=== PATIENT | female | born 1960 | race Caucasian/White ===

== ENCOUNTER 2022-03-21 18:25 | Inpatient (IN) | payer MEDICARE, SELFPAY ==
[2022-03-21] MEDS ORDERED: Folic Acid 1 MG TAB ONE (19:05)
[2022-03-21] MEDS ORDERED: LORazepam 2 MG/ML SYR.(CARPUJECT) ONE (19:06)
[2022-03-21] MEDS ORDERED: Thiamine HCl 200 MG/2 ML VIAL IM SCH (19:15)
[2022-03-21 19:28] LABS: INR-International Normal Ratio 1.6; Prothrombin Time 19.9 sec (12.0-14.7)
[2022-03-21 19:30] LABS: Hemoglobin 7.1 g/dL (12.0-16.0); Mean Corpuscular HGB CONC 32.3 g/dL (32.0-36.0); Mean Corpuscular Hemoglobin 40.3 pg (27.0-31.0); Platelet Count 127 10x3/uL (130-400); RBC Distribution Width 20.3 % (11.5-14.5); Red Blood Cell (RBC) Count 1.75 mill/uL (4.20-5.40); White Blood Cell (WBC) Count 3.2 10x3/uL (4.8-10.8)
[2022-03-21 19:34] LABS: Acetaminophen Less than 10.0 mcg/mL (10.0-30.0); Alcohol Less than 10 mg/dL (Less than 10); Magnesium 1.5 mg/dL (1.6-2.6); Salicylate Less than 8.0 mg/dL (15.0-30.0)
[2022-03-21 19:35] LABS: ALT (SGPT) 25 U/L (8-55); AST (SGOT) 62 U/L (5-34); Albumin 2.1 g/dL (3.4-4.8); Alkaline Phosphatase 258 U/L (40-110); Anion Gap 16 mmol/L (10-20); BUN (Urea Nitrogen) 14 mg/dL (9.8-20.1); Bilirubin, Total 10.1 mg/dL (0.2-1.2); Calc. Creatinine Clearance 0 mL/min (70-130); Calcium 7.9 mg/dL (7.8-10.44); Carbon Dioxide 26 mmol/L (23-31); Chloride 100 mmol/L (98-107); Estimated GFR 47; Globulin 3.2 g/dL (2.4-3.5); Glucose 96 mg/dL (80-115); Lipase 4 U/L (8-78); Potassium 3.2 mmol/L (3.5-5.1); Protein, Total 5.3 g/dL (5.8-8.1); Sodium 139 mmol/L (136-145)
[2022-03-21 19:36] LABS: #Eosinphils 0.1 thou/uL (0.0-0.7); #Lymphocytes 0.5 thou/uL (1.20-3.40); #Monocytes 0.2 thou/uL (0.11-0.59); #Neutrophils 2.3 thou/uL (1.40-6.50); %Basophils 0.9 % (0.0-1.0); %Eosinophils 3.2 % (0.0-10.0); %Lymphocytes 16.5 % (21.0-51.0); %Monocytes 6.9 % (0.0-10.0); %Neutrophils 72.5 % (42.0-75.0)
[2022-03-21] MEDS ORDERED: Potassium Chloride 20 MEQ TAB ONE (20:53)
[2022-03-21] MEDS ORDERED: Magnesium 2 GM/50 ML BAG (IN WATER) ONE (20:53)
[2022-03-21 22:15] LABS: Amphetamine Not Detected (NotDetected); Bacteria/HPF 3+ HPF (None Seen); Barbiturates Screen Not Detected (NotDetected); Benzodiazepine Screen Not Detected (NotDetected); Bilirubin 1+ (Negative); Blood, Urine Negative (Negative); Clarity Turbid (Clear); Cocaine Metabolite Screen Not Detected (NotDetected); Glucose, Urine (Dipstick) Normal (Negative); Ketone, Urine Negative (Negative); Leukocyte 75 Leu/uL (Negative); Methadone Not Detected (NotDetected); Methamphetamine Not Detected (NotDetected); Nitrite Negative (Negative); Opiate Screen Not Detected (NotDetected); Oxycodone Screen Not Detected (NotDetected); Phencyclidine (PCP) Not Detected (NotDetected); Protein, Urine (Dipstick) Negative (Neg-Trace); RBC/HPF 0-3 HPF (0-3); Specific Gravity, Urine 1.011 (1.002-1.036); Squamous Epithelial 0-3 HPF (0-3); THC/Cannabinoid Screen Not Detected (NotDetected); Tricyclic Screen Not Detected (NotDetected)
[2022-03-21] MEDS ORDERED: Lorazepam 1 MG TAB PO PRN (22:23)
[2022-03-21] MEDS ORDERED: Lorazepam 2 MG/ML VIAL IM PRN (22:23)
[2022-03-21] MEDS ORDERED: Ondansetron ODT 4 MG TAB PO PRN ×2 (22:23→22:30)
[2022-03-21] MEDS ORDERED: Thiamine HCl 200 MG/2 ML VIAL SLOW IVP SCH (22:30)
[2022-03-21] MEDS ORDERED: Electrolyte Replacement Protocol 1 EACH FS SCH (22:30)
[2022-03-21] MEDS ORDERED: Ondansetron PF 4 MG/2 ML Vial IVP PRN (22:30)
[2022-03-21 23:39] LABS: #Eosinphils 0.1 thou/uL (0.0-0.7); #Lymphocytes 0.7 thou/uL (1.20-3.40); #Monocytes 0.3 thou/uL (0.11-0.59); #Neutrophils 2.1 thou/uL (1.40-6.50); %Eosinophils 2.2 % (0.0-10.0); %Lymphocytes 21.2 % (21.0-51.0); %Monocytes 10.5 % (0.0-10.0); %Neutrophils 65.1 % (42.0-75.0); Hemoglobin 6.4 g/dL (12.0-16.0); Mean Corpuscular HGB CONC 31.5 g/dL (32.0-36.0); Mean Corpuscular Hemoglobin 40.7 pg (27.0-31.0); Mean Platelet Volume 10.5 fL (7.4-10.4); Platelet Count 98 10x3/uL (130-400); RBC Distribution Width 20.5 % (11.5-14.5); Red Blood Cell (RBC) Count 1.58 mill/uL (4.20-5.40); White Blood Cell (WBC) Count 3.3 10x3/uL (4.8-10.8)
[2022-03-22] MEDS ORDERED: Lactulose 10 GM/15 ML Oral Solution PR SCH ×2 (03:00)
[2022-03-22 04:45] LABS: ALT (SGPT) 23 U/L (8-55); AST (SGOT) 53 U/L (5-34); Albumin 1.7 g/dL (3.4-4.8); Alkaline Phosphatase 210 U/L (40-110); Anion Gap 12 mmol/L (10-20); BUN (Urea Nitrogen) 13 mg/dL (9.8-20.1); Bilirubin, Direct 5.6 mg/dL (0.1-0.3); Bilirubin, Total 7.9 mg/dL (0.2-1.2); Calc. Creatinine Clearance 53 mL/min (70-130); Calcium 7.4 mg/dL (7.8-10.44); Carbon Dioxide 26 mmol/L (23-31); Chloride 106 mmol/L (98-107); Estimated GFR 70; Globulin 2.7 g/dL (2.4-3.5); Glucose 73 mg/dL (80-115); Phosphorus 3.5 mg/dL (2.3-4.7); Potassium 3.4 mmol/L (3.5-5.1); Protein, Total 4.4 g/dL (5.8-8.1); Sodium 141 mmol/L (136-145)
[2022-03-22 04:58] LABS: HBSAg Index 0.36 S/CO (0-0.99); Hep B Surf Ag Non-Reactive S/CO (NonReactive)
[2022-03-22 04:59] LABS: Hep A IgM AB Non-Reactive (NonReactive); Hep A IgM S/CO 0.25 S/CO (0-0.79); Hep C IgG Ab Non-Reactive (NonReactive); Hep C Index 0.17 S/CO (0-0.79)
[2022-03-22 05:01] LABS: HBCM Index 0.09 S/CO (0-0.79); Hepatitis B Core IgM Abs Non-Reactive (NonReactive)
[2022-03-22 05:11] LABS: Vitamin B12 Greater than 2000 pg/mL (211-911)
[2022-03-22] MEDS: Lorazepam 1 MG TAB PO SCH ×2 (05:42→05:43)
[2022-03-22 06:30] LABS: #Eosinphils 0.1 thou/uL (0.0-0.7); #Lymphocytes 0.7 thou/uL (1.20-3.40); #Monocytes 0.4 thou/uL (0.11-0.59); #Neutrophils 2.2 thou/uL (1.40-6.50); %Basophils 0.7 % (0.0-1.0); %Eosinophils 3.3 % (0.0-10.0); %Lymphocytes 20.2 % (21.0-51.0); %Monocytes 11.5 % (0.0-10.0); %Neutrophils 64.4 % (42.0-75.0); Hemoglobin 6.3 g/dL (12.0-16.0); Mean Corpuscular HGB CONC 30.9 g/dL (32.0-36.0); Mean Corpuscular Hemoglobin 40.1 pg (27.0-31.0); Mean Platelet Volume 9.5 fL (7.4-10.4); Platelet Count 117 10x3/uL (130-400); RBC Distribution Width 21.1 % (11.5-14.5); Red Blood Cell (RBC) Count 1.57 mill/uL (4.20-5.40); White Blood Cell (WBC) Count 3.4 10x3/uL (4.8-10.8)
[2022-03-22 07:52] LABS: SARS-CoV-2 NAA Rapid Test Not Detected (NotDetected)
[2022-03-22] MEDS ORDERED: Spironolactone 25 MG TAB PO SCH (08:00)
[2022-03-22] MEDS ORDERED: Magnesium 2 GM/50 ML(in water) 2 GM in Premix Bag 1 BAG IVPB SCH (08:00)
[2022-03-22] MEDS ORDERED: Potassium Chloride 20 MEQ TAB PO SCH (08:00)
[2022-03-22] MEDS ORDERED: Lactated Ringer's 1,000 ML IV SCH ×2 (08:30→11:00)
[2022-03-22] MEDS ORDERED: Lorazepam 1 MG TAB PO PRN ×2 (08:31→22:24)
[2022-03-22] MEDS ORDERED: Lorazepam 2 MG/ML VIAL IM PRN (08:31)
[2022-03-22] MEDS ORDERED: Enoxaparin Sodium 30 MG/0.3 ML SYRINGE SC SCH (09:00)
[2022-03-22] MEDS ORDERED: GLUCOS SUL PO SCH (09:00)
[2022-03-22] MEDS ORDERED: Folic Acid 1 MG TAB PO SCH (09:00)
[2022-03-22] MEDS ORDERED: [UNRECOGNIZED DRUG - OTHER] PO SCH (09:00)
[2022-03-22] MEDS ORDERED: Multivit, Therapeutic 1 TAB PO SCH (09:00)
[2022-03-22] MEDS: cefTRIAXone\\ROCEPHIN 1 GM in Sodium Chloride 0.9% 100 ML IVPB SCH (10:55)
[2022-03-22] MEDS: Rifaximin 550 MG TAB PO SCH ×2 (11:14→21:24)
[2022-03-22] MEDS: Calcium Carbonate 600 MG + Vit D TAB PO SCH (11:14)
[2022-03-22] MEDS: Ascorbic Acid 500 mg Chewable Tablet PO SCH (11:14)
[2022-03-22] MEDS ORDERED: Lorazepam 2 MG/ML VIAL SLOW IVP PRN (13:11)
[2022-03-22] MEDS: Potassium Chloride 20 MEQ in Premix Bag 1 BAG IVPB SCH ×2 (13:49→15:54)
[2022-03-22] MEDS: chlordiazePOXIDE HCl 25 MG CAP PO SCH ×2 (13:57→16:52)
[2022-03-22] MEDS: Magnesium Oxide 250 MG TAB PO SCH (13:58)
[2022-03-22 15:36] LABS: INR-International Normal Ratio 1.9; PTT 42.3 sec (22.9-36.1); Prothrombin Time 22.7 sec (12.0-14.7)
[2022-03-22] MEDS ORDERED: Thiamine 100 MG TAB PO SCH (16:02)
[2022-03-22] MEDS ORDERED: Thiamine 100 MG TAB PER TUBE SCH (16:30)
[2022-03-22] MEDS: D5 0.9% NS w/ 20 mEq KCl 1,000 ML IV SCH (18:14)
[2022-03-22 19:58] LABS: Hemoglobin 8.2 g/dL (12.0-16.0)
[2022-03-22] MEDS: Thiamine HCl 200 MG/2 ML VIAL SLOW IVP SCH (21:24)
[2022-03-23] MEDS: chlordiazePOXIDE HCl 25 MG CAP PO SCH ×4 (00:05→17:48)
[2022-03-23 04:45] LABS: INR-International Normal Ratio 1.9; PTT 41.2 sec (22.9-36.1); Prothrombin Time 22.9 sec (12.0-14.7)
[2022-03-23 04:55] LABS: ALT (SGPT) 19 U/L (8-55); AST (SGOT) 49 U/L (5-34); Albumin 1.7 g/dL (3.4-4.8); Alkaline Phosphatase 207 U/L (40-110); Anion Gap 10 mmol/L (10-20); BUN (Urea Nitrogen) 9 mg/dL (9.8-20.1); Bilirubin, Total 8.2 mg/dL (0.2-1.2); Calc. Creatinine Clearance 66 mL/min (70-130); Calcium 7.3 mg/dL (7.8-10.44); Carbon Dioxide 27 mmol/L (23-31); Chloride 110 mmol/L (98-107); Estimated GFR 91; Globulin 2.6 g/dL (2.4-3.5); Glucose 130 mg/dL (80-115); Magnesium 2.2 mg/dL (1.6-2.6); Phosphorus 3.1 mg/dL (2.3-4.7); Potassium 3.6 mmol/L (3.5-5.1); Protein, Total 4.3 g/dL (5.8-8.1); Sodium 143 mmol/L (136-145)
[2022-03-23 08:31] LABS: #Eosinphils 0.1 thou/uL (0.0-0.7); #Lymphocytes 0.9 thou/uL (1.20-3.40); #Monocytes 0.3 thou/uL (0.11-0.59); #Neutrophils 2.1 thou/uL (1.40-6.50); %Basophils 0.5 % (0.0-1.0); %Lymphocytes 24.8 % (21.0-51.0); %Monocytes 9.3 % (0.0-10.0); %Neutrophils 61.4 % (42.0-75.0); Hemoglobin 7.2 g/dL (12.0-16.0); Mean Corpuscular HGB CONC 31.3 g/dL (32.0-36.0); Mean Corpuscular Hemoglobin 39.1 pg (27.0-31.0); Mean Platelet Volume 8.9 fL (7.4-10.4); Platelet Count 113 10x3/uL (130-400); RBC Distribution Width 21.8 % (11.5-14.5); Red Blood Cell (RBC) Count 1.84 mill/uL (4.20-5.40); White Blood Cell (WBC) Count 3.4 10x3/uL (4.8-10.8)
[2022-03-23] MEDS ORDERED: Lorazepam 1 MG TAB PO PRN ×2 (08:31→22:24)
[2022-03-23] MEDS: Ascorbic Acid 500 mg Chewable Tablet PO SCH (08:44)
[2022-03-23] MEDS: D5 0.9% NS w/ 20 mEq KCl 1,000 ML IV SCH ×2 (08:44→17:48)
[2022-03-23] MEDS: Thiamine 100 MG TAB PER TUBE SCH (08:44)
[2022-03-23] MEDS: Folic Acid 1 MG TAB PER TUBE SCH (08:44)
[2022-03-23] MEDS: Rifaximin 550 MG TAB PO SCH ×2 (08:44→21:06)
[2022-03-23] MEDS: Calcium Carbonate 600 MG + Vit D TAB PO SCH (08:44)
[2022-03-23 08:50] LABS: Hypochromia SLIGHT = 6-15 cells (100X) (0-5/hpf); MDiff Complete? YES; Macrocytosis SLIGHT = 6-15 cells (100X) (0-5/hpf); Ovalocytes SLIGHT = 2-5 cells (100X) (0-1/hpf); Platelet Morphology Comment Appears Decreased; Polychromasia MODERATE = 3-4 cells (100X) (0-2/hpf); Schistocytes SLIGHT = 2-5 cells (100X) (0-1/hpf); Tear Drops SLIGHT = 2-5 cells (100X) (0-1/hpf)
[2022-03-23] MEDS: Magnesium Oxide 250 MG TAB PO SCH (10:23)
[2022-03-23] MEDS: Multivits W-Minerals Liquid 15 ML LIQ PER TUBE SCH (10:23)
[2022-03-23] MEDS: cefTRIAXone\\ROCEPHIN 1 GM in Sodium Chloride 0.9% 100 ML IVPB SCH (10:24)
[2022-03-23 12:13] LABS: Hemoglobin 7.8 g/dL (12.0-16.0)
[2022-03-23 18:14] LABS: Hemoglobin 7.7 g/dL (12.0-16.0)
[2022-03-23] MEDS: Thiamine HCl 200 MG/2 ML VIAL SLOW IVP SCH (21:06)
[2022-03-23] MEDS ORDERED: Lorazepam 0.5 MG TAB PO SCH (22:30)
[2022-03-24] MEDS: chlordiazePOXIDE HCl 25 MG CAP PO SCH ×4 (00:52→20:28)
[2022-03-24 04:21] LABS: ALT (SGPT) 20 U/L (8-55); AST (SGOT) 42 U/L (5-34); Albumin 1.7 g/dL (3.4-4.8); Alkaline Phosphatase 208 U/L (40-110); Anion Gap 7 mmol/L (10-20); BUN (Urea Nitrogen) 8 mg/dL (9.8-20.1); Bilirubin, Total 6.9 mg/dL (0.2-1.2); Calc. Creatinine Clearance 72 mL/min (70-130); Calcium 7.5 mg/dL (7.8-10.44); Carbon Dioxide 25 mmol/L (23-31); Chloride 117 mmol/L (98-107); Estimated GFR 99; Globulin 2.8 g/dL (2.4-3.5); Glucose 138 mg/dL (80-115); Phosphorus 3.3 mg/dL (2.3-4.7); Potassium 4.2 mmol/L (3.5-5.1); Protein, Total 4.5 g/dL (5.8-8.1); Sodium 145 mmol/L (136-145)
[2022-03-24 04:46] LABS: #Eosinphils 0.2 thou/uL (0.0-0.7); #Lymphocytes 0.7 thou/uL (1.20-3.40); #Monocytes 0.3 thou/uL (0.11-0.59); %Basophils 1.3 % (0.0-1.0); %Eosinophils 4.9 % (0.0-10.0); %Lymphocytes 22.1 % (21.0-51.0); %Monocytes 10.1 % (0.0-10.0); %Neutrophils 61.6 % (42.0-75.0); Hemoglobin 7.5 g/dL (12.0-16.0); Mean Corpuscular HGB CONC 31.7 g/dL (32.0-36.0); Mean Corpuscular Hemoglobin 39.8 pg (27.0-31.0); Mean Platelet Volume 9.4 fL (7.4-10.4); Platelet Count 109 10x3/uL (130-400); RBC Distribution Width 21.7 % (11.5-14.5); Red Blood Cell (RBC) Count 1.88 mill/uL (4.20-5.40); White Blood Cell (WBC) Count 3.2 10x3/uL (4.8-10.8)
[2022-03-24] MEDS: D5 0.9% NS w/ 20 mEq KCl 1,000 ML IV SCH ×3 (06:15→20:30)
[2022-03-24] MEDS ORDERED: Magnesium 2 GM/50 ML(in water) 2 GM in Premix Bag 1 BAG IVPB SCH (07:30)
[2022-03-24] MEDS ORDERED: Lorazepam 1 MG TAB PO PRN (08:31)
[2022-03-24] MEDS: Rifaximin 550 MG TAB PO SCH ×2 (08:38→20:28)
[2022-03-24] MEDS: Ascorbic Acid 500 mg Chewable Tablet PO SCH (08:38)
[2022-03-24] MEDS: Folic Acid 1 MG TAB PER TUBE SCH (08:38)
[2022-03-24] MEDS: Thiamine 100 MG TAB PER TUBE SCH (08:38)
[2022-03-24] MEDS: Calcium Carbonate 600 MG + Vit D TAB PO SCH (08:39)
[2022-03-24] MEDS: cefTRIAXone\\ROCEPHIN 1 GM in Sodium Chloride 0.9% 100 ML IVPB SCH (08:39)
[2022-03-24] MEDS: Magnesium Oxide 250 MG TAB PO SCH (08:53)
[2022-03-24] MEDS: Multivits W-Minerals Liquid 15 ML LIQ PER TUBE SCH (08:53)
[2022-03-24] MEDS: Thiamine HCl 200 MG/2 ML VIAL SLOW IVP SCH (20:27)
[2022-03-24] MEDS ORDERED: Lorazepam 0.5 MG TAB PO PRN (22:24)
[2022-03-24] MEDS ORDERED: Thiamine 100 MG TAB PO SCH (22:30)
[2022-03-25] MEDS: chlordiazePOXIDE HCl 25 MG CAP PO SCH ×2 (06:45→21:46)
[2022-03-25 07:19] LABS: #Eosinphils 0.3 thou/uL (0.0-0.7); #Monocytes 0.5 thou/uL (0.11-0.59); #Neutrophils 2.9 thou/uL (1.40-6.50); %Basophils 0.7 % (0.0-1.0); %Eosinophils 5.9 % (0.0-10.0); %Lymphocytes 21.5 % (21.0-51.0); %Monocytes 10.1 % (0.0-10.0); %Neutrophils 61.7 % (42.0-75.0); Hemoglobin 8.5 g/dL (12.0-16.0); Mean Corpuscular HGB CONC 28.9 g/dL (32.0-36.0); Mean Corpuscular Hemoglobin 37.8 pg (27.0-31.0); Mean Platelet Volume 10.3 fL (7.4-10.4); Platelet Count 78 10x3/uL (130-400); RBC Distribution Width 21.6 % (11.5-14.5); Red Blood Cell (RBC) Count 2.25 mill/uL (4.20-5.40); White Blood Cell (WBC) Count 4.7 10x3/uL (4.8-10.8)
[2022-03-25 07:24] LABS: ALT (SGPT) 22 U/L (8-55); AST (SGOT) 63 U/L (5-34); Albumin 1.8 g/dL (3.4-4.8); Alkaline Phosphatase 218 U/L (40-110); Anion Gap 8 mmol/L (10-20); BUN (Urea Nitrogen) 7 mg/dL (9.8-20.1); Bilirubin, Total 6.8 mg/dL (0.2-1.2); Calc. Creatinine Clearance 89 mL/min (70-130); Calcium 7.7 mg/dL (7.8-10.44); Carbon Dioxide 18 mmol/L (23-31); Chloride 121 mmol/L (98-107); Estimated GFR 102; Globulin 3.2 g/dL (2.4-3.5); Glucose 119 mg/dL (80-115); Magnesium 2.2 mg/dL (1.6-2.6); Phosphorus 3.4 mg/dL (2.3-4.7); Potassium 5.4 mmol/L (3.5-5.1); Sodium 142 mmol/L (136-145)
[2022-03-25 07:58] LABS: Anisocytosis MODERATE=16-30 cells (100X) (0-5/hpf); MDiff Complete? YES; Platelet Morphology Comment Appears Decreased; Polychromasia MODERATE = 3-4 cells (100X) (0-2/hpf); Schistocytes SLIGHT = 2-5 cells (100X) (0-1/hpf)
[2022-03-25] MEDS: Thiamine 100 MG TAB PER TUBE SCH (08:58)
[2022-03-25] MEDS: Ascorbic Acid 500 mg Chewable Tablet PO SCH (08:58)
[2022-03-25] MEDS: Magnesium Oxide 250 MG TAB PO SCH (08:58)
[2022-03-25] MEDS: Multivits W-Minerals Liquid 15 ML LIQ PER TUBE SCH (08:58)
[2022-03-25] MEDS: Folic Acid 1 MG TAB PER TUBE SCH (08:58)
[2022-03-25] MEDS: Calcium Carbonate 600 MG + Vit D TAB PO SCH (08:58)
[2022-03-25] MEDS: Rifaximin 550 MG TAB PO SCH ×2 (08:58→21:46)
[2022-03-25] MEDS: cefTRIAXone\\ROCEPHIN 1 GM in Sodium Chloride 0.9% 100 ML IVPB SCH (09:00)
[2022-03-25] MEDS ORDERED: chlordiazePOXIDE HCl 25 MG CAP PO SCH ×2 (12:00→21:00)
[2022-03-25] MEDS ORDERED: Furosemide 20 MG/2 ML VIAL SLOW IVP SCH (13:15)
[2022-03-25] MEDS ORDERED: Thiamine 100 MG TAB PO SCH (21:00)
[2022-03-26] MEDS: Spironolactone 25 MG TAB PO SCH (09:38)
[2022-03-26] MEDS: Folic Acid 1 MG TAB PER TUBE SCH (09:39)
[2022-03-26] MEDS: Ascorbic Acid 500 mg Chewable Tablet PO SCH (09:39)
[2022-03-26] MEDS: Bupropion 150 MG XL TAB PO SCH (09:39)
[2022-03-26] MEDS: Rifaximin 550 MG TAB PO SCH ×2 (09:39→20:03)
[2022-03-26] MEDS: Calcium Carbonate 600 MG + Vit D TAB PO SCH (09:39)
[2022-03-26] MEDS: Thiamine 100 MG TAB PER TUBE SCH (09:39)
[2022-03-26] MEDS: Furosemide 20 MG/2 ML VIAL SLOW IVP SCH (09:40)
[2022-03-26] MEDS: cefTRIAXone\\ROCEPHIN 1 GM in Sodium Chloride 0.9% 100 ML IVPB SCH (09:40)
[2022-03-26] MEDS: Magnesium Oxide 250 MG TAB PO SCH (09:40)
[2022-03-26] MEDS: Multivits W-Minerals Liquid 15 ML LIQ PER TUBE SCH (09:40)
[2022-03-26 10:22] LABS: Hemoglobin 9.8 g/dL (12.0-16.0); Mean Corpuscular HGB CONC 31.2 g/dL (32.0-36.0); Mean Corpuscular Hemoglobin 39.5 pg (27.0-31.0); Red Blood Cell (RBC) Count 2.47 mill/uL (4.20-5.40)
[2022-03-26 10:46] LABS: Band 2 % (5-11); Eosinophils 4 % (0-10); Lymphocytes 18 % (21-51); MDiff Complete? YES; Mean Platelet Volume 10.2 fL (7.4-10.4); Neutrophil 76 % (42-75); Ovalocytes SLIGHT = 2-5 cells (100X) (0-1/hpf); Platelet Count 89 10x3/uL (130-400); Platelet Morphology Comment Appears Decreased; Polychromasia SLIGHT = 2-3 cells (100X) (0-2/hpf); Schistocytes SLIGHT = 2-5 cells (100X) (0-1/hpf); White Blood Cell (WBC) Count 4.5 10x3/uL (4.8-10.8)
[2022-03-26 11:01] LABS: ALT (SGPT) 21 U/L (8-55); AST (SGOT) 52 U/L (5-34); Albumin 1.9 g/dL (3.4-4.8); Alkaline Phosphatase 226 U/L (40-110); Anion Gap 10 mmol/L (10-20); BUN (Urea Nitrogen) 7 mg/dL (9.8-20.1); Bilirubin, Total 9.1 mg/dL (0.2-1.2); Calc. Creatinine Clearance 98 mL/min (70-130); Calcium 7.9 mg/dL (7.8-10.44); Carbon Dioxide 20 mmol/L (23-31); Chloride 117 mmol/L (98-107); Estimated GFR 103; Globulin 3.1 g/dL (2.4-3.5); Glucose 96 mg/dL (80-115); Magnesium 1.8 mg/dL (1.6-2.6); Phosphorus 3.8 mg/dL (2.3-4.7); Potassium 4.8 mmol/L (3.5-5.1); Sodium 142 mmol/L (136-145)
[2022-03-26] MEDS: chlordiazePOXIDE HCl 25 MG CAP PO SCH (11:19)
[2022-03-26] MEDS ORDERED: Magnesium 2 GM/50 ML(in water) 2 GM in Premix Bag 1 BAG IVPB SCH (12:00)
[2022-03-27 06:56] LABS: ALT (SGPT) 24 U/L (8-55); AST (SGOT) 100 U/L (5-34); Albumin 1.6 g/dL (3.4-4.8); Alkaline Phosphatase 195 U/L (40-110); Anion Gap 12 mmol/L (10-20); BUN (Urea Nitrogen) 7 mg/dL (9.8-20.1); Bilirubin, Total 7.6 mg/dL (0.2-1.2); Calc. Creatinine Clearance 79 mL/min (70-130); Calcium 7.7 mg/dL (7.8-10.44); Carbon Dioxide 19 mmol/L (23-31); Chloride 111 mmol/L (98-107); Estimated GFR 100; Globulin 3.2 g/dL (2.4-3.5); Glucose 74 mg/dL (80-115); Magnesium 1.7 mg/dL (1.6-2.6); Phosphorus 4.2 mg/dL (2.3-4.7); Potassium 5.5 mmol/L (3.5-5.1); Protein, Total 4.8 g/dL (5.8-8.1); Sodium 136 mmol/L (136-145)
[2022-03-27] MEDS ORDERED: Magnesium 2 GM/50 ML(in water) 2 GM in Premix Bag 1 BAG IVPB SCH (08:00)
[2022-03-27] MEDS: Ascorbic Acid 500 mg Chewable Tablet PO SCH (08:58)
[2022-03-27] MEDS: Rifaximin 550 MG TAB PO SCH ×2 (08:58→20:24)
[2022-03-27] MEDS: Magnesium Oxide 250 MG TAB PO SCH (08:58)
[2022-03-27] MEDS: Folic Acid 1 MG TAB PER TUBE SCH (08:58)
[2022-03-27] MEDS: Spironolactone 25 MG TAB PO SCH (08:58)
[2022-03-27] MEDS: Thiamine 100 MG TAB PER TUBE SCH (08:58)
[2022-03-27] MEDS: Calcium Carbonate 600 MG + Vit D TAB PO SCH (08:58)
[2022-03-27] MEDS: Multivits W-Minerals Liquid 15 ML LIQ PER TUBE SCH (08:59)
[2022-03-27] MEDS: Furosemide 20 MG/2 ML VIAL SLOW IVP SCH ×2 (08:59→13:40)
[2022-03-27] MEDS: Bupropion 150 MG XL TAB PO SCH (08:59)
[2022-03-27] MEDS: cefTRIAXone\\ROCEPHIN 1 GM in Sodium Chloride 0.9% 100 ML IVPB SCH (08:59)
[2022-03-27] MEDS: Lansoprazole 15 MG/5 ML (BATCHED)UDCUP PER TUBE SCH (09:34)
[2022-03-27 17:21] LABS: #Eosinphils 0.2 thou/uL (0.0-0.7); #Lymphocytes 0.6 thou/uL (1.20-3.40); #Monocytes 0.3 thou/uL (0.11-0.59); #Neutrophils 3.6 thou/uL (1.40-6.50); %Basophils 0.8 % (0.0-1.0); %Eosinophils 3.9 % (0.0-10.0); %Lymphocytes 12.4 % (21.0-51.0); %Monocytes 6.2 % (0.0-10.0); %Neutrophils 76.7 % (42.0-75.0); Hemoglobin 8.7 g/dL (12.0-16.0); Mean Corpuscular HGB CONC 31.5 g/dL (32.0-36.0); Mean Corpuscular Hemoglobin 38.5 pg (27.0-31.0); Mean Platelet Volume 9.2 fL (7.4-10.4); Platelet Count 53 10x3/uL (130-400); RBC Distribution Width 21.2 % (11.5-14.5); Red Blood Cell (RBC) Count 2.25 mill/uL (4.20-5.40); White Blood Cell (WBC) Count 4.6 10x3/uL (4.8-10.8)
[2022-03-28 07:59] LABS: #Eosinphils 0.1 thou/uL (0.0-0.7); #Lymphocytes 0.7 thou/uL (1.20-3.40); #Monocytes 0.3 thou/uL (0.11-0.59); #Neutrophils 2.9 thou/uL (1.40-6.50); %Basophils 0.8 % (0.0-1.0); %Eosinophils 3.4 % (0.0-10.0); %Lymphocytes 16.9 % (21.0-51.0); %Monocytes 8.1 % (0.0-10.0); %Neutrophils 70.8 % (42.0-75.0); Hemoglobin 7.6 g/dL (12.0-16.0); Mean Corpuscular HGB CONC 31.7 g/dL (32.0-36.0); Mean Corpuscular Hemoglobin 38.6 pg (27.0-31.0); Mean Platelet Volume 9.8 fL (7.4-10.4); Platelet Count 105 10x3/uL (130-400); RBC Distribution Width 20.7 % (11.5-14.5); Red Blood Cell (RBC) Count 1.97 mill/uL (4.20-5.40); White Blood Cell (WBC) Count 4.1 10x3/uL (4.8-10.8)
[2022-03-28 08:02] LABS: ALT (SGPT) 21 U/L (8-55); AST (SGOT) 53 U/L (5-34); Albumin 1.6 g/dL (3.4-4.8); Alkaline Phosphatase 191 U/L (40-110); Anion Gap 10 mmol/L (10-20); BUN (Urea Nitrogen) 7 mg/dL (9.8-20.1); Bilirubin, Total 7.8 mg/dL (0.2-1.2); Calc. Creatinine Clearance 82 mL/min (70-130); Calcium 7.8 mg/dL (7.8-10.44); Carbon Dioxide 25 mmol/L (23-31); Chloride 106 mmol/L (98-107); Estimated GFR 101; Globulin 2.8 g/dL (2.4-3.5); Glucose 82 mg/dL (80-115); Magnesium 1.7 mg/dL (1.6-2.6); Potassium 4.2 mmol/L (3.5-5.1); Protein, Total 4.4 g/dL (5.8-8.1); Sodium 137 mmol/L (136-145)
[2022-03-28] MEDS ORDERED: Magnesium 2 GM/50 ML(in water) 2 GM in Premix Bag 1 BAG IVPB SCH (08:15)
[2022-03-28] MEDS: Lansoprazole 15 MG/5 ML (BATCHED)UDCUP PER TUBE SCH (08:46)
[2022-03-28] MEDS: Magnesium Oxide 250 MG TAB PO SCH (08:47)
[2022-03-28] MEDS: Thiamine 100 MG TAB PER TUBE SCH (08:47)
[2022-03-28] MEDS: Calcium Carbonate 600 MG + Vit D TAB PO SCH (08:47)
[2022-03-28] MEDS: Rifaximin 550 MG TAB PO SCH ×2 (08:47→19:48)
[2022-03-28] MEDS: Spironolactone 25 MG TAB PO SCH (08:47)
[2022-03-28] MEDS: Bupropion 150 MG XL TAB PO SCH (08:47)
[2022-03-28] MEDS: Ascorbic Acid 500 mg Chewable Tablet PO SCH (08:47)
[2022-03-28] MEDS: Folic Acid 1 MG TAB PER TUBE SCH (08:47)
[2022-03-28] MEDS: Furosemide 20 MG/2 ML VIAL SLOW IVP SCH (08:47)
[2022-03-28] MEDS: Multivits W-Minerals Liquid 15 ML LIQ PER TUBE SCH (08:48)
[2022-03-28 19:06] LABS: Hemoglobin 8.6 g/dL (12.0-16.0)
[2022-03-29 07:06] LABS: Mean Corpuscular HGB CONC 32.2 g/dL (32.0-36.0); Mean Corpuscular Hemoglobin 37.6 pg (27.0-31.0); Mean Platelet Volume 9.8 fL (7.4-10.4); Platelet Count 110 10x3/uL (130-400); RBC Distribution Width 21.7 % (11.5-14.5); Red Blood Cell (RBC) Count 2.12 mill/uL (4.20-5.40); White Blood Cell (WBC) Count 3.5 10x3/uL (4.8-10.8)
[2022-03-29 07:07] LABS: #Eosinphils 0.1 thou/uL (0.0-0.7); #Lymphocytes 0.8 thou/uL (1.20-3.40); #Monocytes 0.4 thou/uL (0.11-0.59); #Neutrophils 2.2 thou/uL (1.40-6.50); %Basophils 0.6 % (0.0-1.0); %Eosinophils 3.8 % (0.0-10.0); %Lymphocytes 22.7 % (21.0-51.0); %Monocytes 11.2 % (0.0-10.0); %Neutrophils 61.7 % (42.0-75.0)
[2022-03-29 07:10] LABS: Phosphorus 3.5 mg/dL (2.3-4.7)
[2022-03-29 07:16] LABS: ALT (SGPT) 17 U/L (8-55); AST (SGOT) 50 U/L (5-34); Albumin 1.6 g/dL (3.4-4.8); Alkaline Phosphatase 193 U/L (40-110); Anion Gap 7 mmol/L (10-20); BUN (Urea Nitrogen) 7 mg/dL (9.8-20.1); Bilirubin, Total 6.1 mg/dL (0.2-1.2); Calc. Creatinine Clearance 89 mL/min (70-130); Calcium 7.6 mg/dL (7.8-10.44); Carbon Dioxide 27 mmol/L (23-31); Chloride 107 mmol/L (98-107); Estimated GFR 103; Globulin 2.6 g/dL (2.4-3.5); Glucose 108 mg/dL (80-115); Magnesium 1.8 mg/dL (1.6-2.6); Potassium 4.1 mmol/L (3.5-5.1); Protein, Total 4.2 g/dL (5.8-8.1); Sodium 137 mmol/L (136-145)
[2022-03-29] MEDS ORDERED: Magnesium 2 GM/50 ML(in water) 2 GM in Premix Bag 1 BAG IVPB SCH (08:00)
[2022-03-29] MEDS ORDERED: Furosemide 20 MG/2 ML VIAL SLOW IVP SCH (08:30)
[2022-03-29] MEDS: Magnesium Oxide 250 MG TAB PO SCH (08:33)
[2022-03-29] MEDS: Ascorbic Acid 500 mg Chewable Tablet PO SCH (08:33)
[2022-03-29] MEDS: Spironolactone 25 MG TAB PO SCH (08:33)
[2022-03-29] MEDS: Folic Acid 1 MG TAB PER TUBE SCH (08:33)
[2022-03-29] MEDS: Thiamine 100 MG TAB PER TUBE SCH (08:33)
[2022-03-29] MEDS: Rifaximin 550 MG TAB PO SCH ×2 (08:33→20:46)
[2022-03-29] MEDS: Multivits W-Minerals Liquid 15 ML LIQ PER TUBE SCH (08:33)
[2022-03-29] MEDS: Calcium Carbonate 600 MG + Vit D TAB PO SCH (08:33)
[2022-03-29] MEDS: Lansoprazole 15 MG/5 ML (BATCHED)UDCUP PER TUBE SCH (10:42)
[2022-03-29] MEDS: Bupropion 150 MG XL TAB PO SCH (10:42)
[2022-03-29 11:17] LABS: Hypochromia SLIGHT = 6-15 cells (100X) (0-5/hpf); Macrocytosis MODERATE=16-30 cells (100X) (0-5/hpf); Polychromasia MODERATE = 3-4 cells (100X) (0-2/hpf)
[2022-03-29 11:18] LABS: Anisocytosis MODERATE=16-30 cells (100X) (0-5/hpf)
[2022-03-29] MEDS: Furosemide 20 MG/2 ML VIAL SLOW IVP SCH (14:38)
[2022-03-30 04:44] LABS: #Eosinphils 0.2 thou/uL (0.0-0.7); #Lymphocytes 0.8 thou/uL (1.20-3.40); #Monocytes 0.4 thou/uL (0.11-0.59); #Neutrophils 3.8 thou/uL (1.40-6.50); %Basophils 0.7 % (0.0-1.0); %Eosinophils 3.7 % (0.0-10.0); %Lymphocytes 14.5 % (21.0-51.0); %Monocytes 8.4 % (0.0-10.0); %Neutrophils 72.7 % (42.0-75.0); Hemoglobin 9.5 g/dL (12.0-16.0); Mean Corpuscular HGB CONC 31.6 g/dL (32.0-36.0); Mean Corpuscular Hemoglobin 36.8 pg (27.0-31.0); Mean Platelet Volume 9.5 fL (7.4-10.4); Platelet Count 149 10x3/uL (130-400); RBC Distribution Width 21.6 % (11.5-14.5); Red Blood Cell (RBC) Count 2.58 mill/uL (4.20-5.40); White Blood Cell (WBC) Count 5.2 10x3/uL (4.8-10.8)
[2022-03-30 04:48] LABS: INR-International Normal Ratio 1.4; Prothrombin Time 17.9 sec (12.0-14.7)
[2022-03-30 04:54] LABS: ALT (SGPT) 23 U/L (8-55); AST (SGOT) 54 U/L (5-34); Albumin 1.7 g/dL (3.4-4.8); Alkaline Phosphatase 209 U/L (40-110); Anion Gap 12 mmol/L (10-20); BUN (Urea Nitrogen) 8 mg/dL (9.8-20.1); Bilirubin, Total 7.2 mg/dL (0.2-1.2); Calc. Creatinine Clearance 86 mL/min (70-130); Calcium 7.9 mg/dL (7.8-10.44); Carbon Dioxide 25 mmol/L (23-31); Chloride 105 mmol/L (98-107); Estimated GFR 102; Globulin 3.3 g/dL (2.4-3.5); Glucose 102 mg/dL (80-115); Potassium 4.2 mmol/L (3.5-5.1); Sodium 138 mmol/L (136-145)
[2022-03-30] MEDS: Furosemide 20 MG/2 ML VIAL SLOW IVP SCH (05:06)
[2022-03-30] MEDS: Magnesium Oxide 250 MG TAB PO SCH (09:33)
[2022-03-30] MEDS: Bupropion 150 MG XL TAB PO SCH (09:33)
[2022-03-30] MEDS: Rifaximin 550 MG TAB PO SCH ×2 (09:33→20:38)
[2022-03-30] MEDS: Spironolactone 25 MG TAB PO SCH (09:34)
[2022-03-30] MEDS: Folic Acid 1 MG TAB PER TUBE SCH (09:34)
[2022-03-30] MEDS: Multivits W-Minerals Liquid 15 ML LIQ PER TUBE SCH (09:34)
[2022-03-30] MEDS: Calcium Carbonate 600 MG + Vit D TAB PO SCH (09:34)
[2022-03-30] MEDS: Ascorbic Acid 500 mg Chewable Tablet PO SCH (09:34)
[2022-03-30] MEDS: Thiamine 100 MG TAB PER TUBE SCH (09:34)
[2022-03-30] MEDS: Lansoprazole 15 MG/5 ML (BATCHED)UDCUP PER TUBE SCH (11:28)
[2022-03-30] MEDS ORDERED: MD-Gastroview 120 ML BOT ONE (13:09)
[2022-03-30] MEDS: Furosemide 20 MG TAB PO SCH (14:55)
[2022-03-31 06:27] LABS: #Basophils 0.1 thou/uL (0.0-0.2); #Eosinphils 0.3 thou/uL (0.0-0.7); #Lymphocytes 1.3 thou/uL (1.20-3.40); #Monocytes 0.4 thou/uL (0.11-0.59); #Neutrophils 3.2 thou/uL (1.40-6.50); %Basophils 1.1 % (0.0-1.0); %Eosinophils 6.2 % (0.0-10.0); %Lymphocytes 24.2 % (21.0-51.0); %Monocytes 6.8 % (0.0-10.0); %Neutrophils 61.7 % (42.0-75.0); Mean Corpuscular HGB CONC 32.2 g/dL (32.0-36.0); Mean Corpuscular Hemoglobin 37.6 pg (27.0-31.0); Platelet Count 161 10x3/uL (130-400); RBC Distribution Width 21.5 % (11.5-14.5); White Blood Cell (WBC) Count 5.2 10x3/uL (4.8-10.8)
[2022-03-31 06:45] LABS: ALT (SGPT) 15 U/L (8-55); AST (SGOT) 47 U/L (5-34); Albumin 1.8 g/dL (3.4-4.8); Alkaline Phosphatase 188 U/L (40-110); Anion Gap 6 mmol/L (10-20); BUN (Urea Nitrogen) 10 mg/dL (9.8-20.1); Calc. Creatinine Clearance 80 mL/min (70-130); Calcium 8.2 mg/dL (7.8-10.44); Carbon Dioxide 29 mmol/L (23-31); Chloride 104 mmol/L (98-107); Estimated GFR 100; Glucose 96 mg/dL (80-115); Potassium 4.1 mmol/L (3.5-5.1); Protein, Total 4.8 g/dL (5.8-8.1); Sodium 135 mmol/L (136-145)
[2022-03-31] MEDS: Spironolactone 25 MG TAB PO SCH (09:07)
[2022-03-31] MEDS: Calcium Carbonate 600 MG + Vit D TAB PO SCH (09:08)
[2022-03-31] MEDS: Folic Acid 1 MG TAB PER TUBE SCH (09:08)
[2022-03-31] MEDS: Rifaximin 550 MG TAB PO SCH ×2 (09:08→20:26)
[2022-03-31] MEDS: Lansoprazole 15 MG/5 ML (BATCHED)UDCUP PER TUBE SCH (09:08)
[2022-03-31] MEDS: Ascorbic Acid 500 mg Chewable Tablet PO SCH (09:08)
[2022-03-31] MEDS: Furosemide 20 MG TAB PO SCH ×2 (09:08→14:18)
[2022-03-31] MEDS: Magnesium Oxide 250 MG TAB PO SCH (09:08)
[2022-03-31] MEDS: Thiamine 100 MG TAB PER TUBE SCH (09:08)
[2022-03-31] MEDS: Bupropion 150 MG XL TAB PO SCH (09:08)
[2022-03-31] MEDS: Multivits W-Minerals Liquid 15 ML LIQ PER TUBE SCH (10:13)
[2022-04-01 07:38] LABS: Hemoglobin 8.4 g/dL (12.0-16.0); Mean Corpuscular HGB CONC 32.3 g/dL (32.0-36.0); Mean Corpuscular Hemoglobin 37.9 pg (27.0-31.0); Platelet Count 135 10x3/uL (130-400); RBC Distribution Width 20.9 % (11.5-14.5); Red Blood Cell (RBC) Count 2.21 mill/uL (4.20-5.40); White Blood Cell (WBC) Count 5.4 10x3/uL (4.8-10.8)
[2022-04-01 07:43] LABS: ALT (SGPT) 13 U/L (8-55); AST (SGOT) 41 U/L (5-34); Albumin 1.7 g/dL (3.4-4.8); Alkaline Phosphatase 168 U/L (40-110); Anion Gap 7 mmol/L (10-20); BUN (Urea Nitrogen) 9 mg/dL (9.8-20.1); Bilirubin, Total 5.8 mg/dL (0.2-1.2); Calc. Creatinine Clearance 93 mL/min (70-130); Carbon Dioxide 29 mmol/L (23-31); Chloride 103 mmol/L (98-107); Estimated GFR 104; Globulin 2.8 g/dL (2.4-3.5); Glucose 69 mg/dL (80-115); Potassium 3.8 mmol/L (3.5-5.1); Protein, Total 4.5 g/dL (5.8-8.1); Sodium 135 mmol/L (136-145)
[2022-04-01 08:44] LABS: #Basophils 0.1 thou/uL (0.0-0.2); #Eosinphils 0.3 thou/uL (0.0-0.7); #Lymphocytes 0.9 thou/uL (1.20-3.40); #Monocytes 0.3 thou/uL (0.11-0.59); #Neutrophils 3.8 thou/uL (1.40-6.50); %Basophils 0.9 % (0.0-1.0); %Eosinophils 6.5 % (0.0-10.0); %Lymphocytes 15.9 % (21.0-51.0); %Monocytes 5.5 % (0.0-10.0); %Neutrophils 71.2 % (42.0-75.0); Anisocytosis MODERATE=16-30 cells (100X) (0-5/hpf); Hypochromia SLIGHT = 6-15 cells (100X) (0-5/hpf); MDiff Complete? YES; Ovalocytes SLIGHT = 2-5 cells (100X) (0-1/hpf); Platelet Morphology Comment Appears Adequate; Polychromasia MODERATE = 3-4 cells (100X) (0-2/hpf)
[2022-04-01] MEDS ORDERED: Dextrose 50% Abboject 50 ML SYRINGE SLOW IVP PRN (09:08)
[2022-04-01] MEDS ORDERED: Dextrose 5% in Water 1,000 ML IV PRN (09:08)
[2022-04-01] MEDS: Bupropion 150 MG XL TAB PO SCH (09:47)
[2022-04-01] MEDS: Rifaximin 550 MG TAB PO SCH ×2 (09:48→23:38)
[2022-04-01] MEDS: Ascorbic Acid 500 mg Chewable Tablet PO SCH (09:48)
[2022-04-01] MEDS: Furosemide 20 MG TAB PO SCH ×2 (09:48→17:02)
[2022-04-01] MEDS: Spironolactone 25 MG TAB PO SCH (09:48)
[2022-04-01] MEDS: Multivits W-Minerals Liquid 15 ML LIQ PER TUBE SCH (09:58)
[2022-04-01] MEDS: Folic Acid 1 MG TAB PER TUBE SCH (12:01)
[2022-04-01] MEDS: Thiamine 100 MG TAB PER TUBE SCH (12:04)
[2022-04-01] MEDS: Magnesium Oxide 250 MG TAB PO SCH (12:05)
[2022-04-01] MEDS: Calcium Carbonate 600 MG + Vit D TAB PO SCH (12:06)
[2022-04-01] MEDS: Lansoprazole 15 MG/5 ML (BATCHED)UDCUP PER TUBE SCH (12:06)
[2022-04-01 14:02] VITALS: BMI 26.0
[2022-04-02 09:14] LABS: Chloride 104 mmol/L (98-107); Potassium 3.9 mmol/L (3.5-5.1); Sodium 137 mmol/L (136-145)
[2022-04-02 09:15] LABS: Calcium 8.5 mg/dL (7.8-10.44); Glucose 75 mg/dL (80-115)
[2022-04-02 09:16] LABS: Carbon Dioxide 28 mmol/L (23-31)
[2022-04-02] MEDS: Furosemide 20 MG TAB PO SCH ×2 (09:16→15:00)
[2022-04-02] MEDS: Thiamine 100 MG TAB PER TUBE SCH (09:16)
[2022-04-02] MEDS: Magnesium Oxide 250 MG TAB PO SCH (09:16)
[2022-04-02] MEDS: Calcium Carbonate 600 MG + Vit D TAB PO SCH (09:16)
[2022-04-02] MEDS: Folic Acid 1 MG TAB PER TUBE SCH (09:16)
[2022-04-02] MEDS: Lansoprazole 15 MG/5 ML (BATCHED)UDCUP PER TUBE SCH (09:16)
[2022-04-02] MEDS: Spironolactone 25 MG TAB PO SCH (09:16)
[2022-04-02] MEDS: Ascorbic Acid 500 mg Chewable Tablet PO SCH (09:16)
[2022-04-02] MEDS: Bupropion 150 MG XL TAB PO SCH (09:16)
[2022-04-02 09:17] LABS: Anion Gap 9 mmol/L (10-20)
[2022-04-02] MEDS: Rifaximin 550 MG TAB PO SCH ×2 (09:17→22:03)
[2022-04-02] MEDS: Multivits W-Minerals Liquid 15 ML LIQ PER TUBE SCH (09:17)
[2022-04-02] MEDS: Lidocaine 5% Patch TD SCH (09:17)
[2022-04-02 09:18] LABS: Calc. Creatinine Clearance 86 mL/min (70-130); Estimated GFR 102
[2022-04-02 09:19] LABS: BUN (Urea Nitrogen) 10 mg/dL (9.8-20.1)
[2022-04-02] MEDS: Transdermal Patch Removal LIDOCAINE TOP SCH (22:03)
[2022-04-03 08:07] LABS: #Eosinphils 0.4 thou/uL (0.0-0.7); #Lymphocytes 1.1 thou/uL (1.20-3.40); #Monocytes 0.3 thou/uL (0.11-0.59); #Neutrophils 1.8 thou/uL (1.40-6.50); %Basophils 1.4 % (0.0-1.0); %Eosinophils 10.3 % (0.0-10.0); %Lymphocytes 29.8 % (21.0-51.0); %Monocytes 8.7 % (0.0-10.0); %Neutrophils 49.9 % (42.0-75.0); Anisocytosis MODERATE=16-30 cells (100X) (0-5/hpf); Hemoglobin 9.5 g/dL (12.0-16.0); MDiff Complete? YES; Macrocytosis MODERATE=16-30 cells (100X) (0-5/hpf); Mean Corpuscular HGB CONC 33.4 g/dL (32.0-36.0); Mean Corpuscular Hemoglobin 38.7 pg (27.0-31.0); Mean Platelet Volume 8.9 fL (7.4-10.4); Platelet Count 150 10x3/uL (130-400); Platelet Morphology Comment Appears Adequate; Polychromasia MODERATE = 3-4 cells (100X) (0-2/hpf); RBC Distribution Width 20.5 % (11.5-14.5); Red Blood Cell (RBC) Count 2.45 mill/uL (4.20-5.40); Schistocytes SLIGHT = 2-5 cells (100X) (0-1/hpf); Tear Drops SLIGHT = 2-5 cells (100X) (0-1/hpf); White Blood Cell (WBC) Count 3.7 10x3/uL (4.8-10.8)
[2022-04-03] MEDS: Rifaximin 550 MG TAB PO SCH ×2 (09:05→22:19)
[2022-04-03] MEDS: Lansoprazole 15 MG/5 ML (BATCHED)UDCUP PER TUBE SCH (09:05)
[2022-04-03] MEDS: Ascorbic Acid 500 mg Chewable Tablet PO SCH (09:05)
[2022-04-03] MEDS: Lidocaine 5% Patch TD SCH (09:05)
[2022-04-03] MEDS: Multivits W-Minerals Liquid 15 ML LIQ PER TUBE SCH (09:05)
[2022-04-03] MEDS: Thiamine 100 MG TAB PER TUBE SCH (09:05)
[2022-04-03] MEDS: Bupropion 150 MG XL TAB PO SCH (09:05)
[2022-04-03] MEDS: Calcium Carbonate 600 MG + Vit D TAB PO SCH (09:05)
[2022-04-03] MEDS: Magnesium Oxide 250 MG TAB PO SCH (09:05)
[2022-04-03] MEDS: Furosemide 20 MG TAB PO SCH ×2 (09:06→14:09)
[2022-04-03] MEDS: Spironolactone 25 MG TAB PO SCH (09:06)
[2022-04-03] MEDS: Folic Acid 1 MG TAB PER TUBE SCH (09:06)
[2022-04-03] MEDS: Transdermal Patch Removal LIDOCAINE TOP SCH (22:19)
[2022-04-04 06:51] LABS: Anion Gap 14 mmol/L (10-20); BUN (Urea Nitrogen) 12 mg/dL (9.8-20.1); Calc. Creatinine Clearance 76 mL/min (70-130); Calcium 8.8 mg/dL (7.8-10.44); Carbon Dioxide 27 mmol/L (23-31); Chloride 100 mmol/L (98-107); Estimated GFR 99; Glucose 62 mg/dL (80-115); Potassium 3.9 mmol/L (3.5-5.1); Sodium 137 mmol/L (136-145)
[2022-04-04] MEDS: Rifaximin 550 MG TAB PO SCH ×2 (09:04→20:44)
[2022-04-04] MEDS: Spironolactone 25 MG TAB PO SCH (09:04)
[2022-04-04] MEDS: Magnesium Oxide 250 MG TAB PO SCH (09:04)
[2022-04-04] MEDS: Folic Acid 1 MG TAB PER TUBE SCH (09:04)
[2022-04-04] MEDS: Calcium Carbonate 600 MG + Vit D TAB PO SCH (09:04)
[2022-04-04] MEDS: Bupropion 150 MG XL TAB PO SCH (09:04)
[2022-04-04] MEDS: Ascorbic Acid 500 mg Chewable Tablet PO SCH (09:04)
[2022-04-04] MEDS: Lidocaine 5% Patch TD SCH (09:05)
[2022-04-04] MEDS: Thiamine 100 MG TAB PER TUBE SCH (09:05)
[2022-04-04] MEDS: Lansoprazole 15 MG/5 ML (BATCHED)UDCUP PER TUBE SCH (09:05)
[2022-04-04] MEDS: Multivits W-Minerals Liquid 15 ML LIQ PER TUBE SCH (16:20)
[2022-04-04] MEDS: Transdermal Patch Removal LIDOCAINE TOP SCH (20:45)
[2022-04-05] MEDS ORDERED: Vancomycin HCl 125 MG/5 ML (BATCHED) UDCUP PO SCH (02:00)
[2022-04-05] MEDS: Vancomycin HCl 125 MG/5 ML (BATCHED) UDCUP PO SCH ×3 (05:48→17:57)
[2022-04-05] MEDS: Calcium Carbonate 600 MG + Vit D TAB PO SCH (08:47)
[2022-04-05] MEDS: Bupropion 150 MG XL TAB PO SCH (08:47)
[2022-04-05] MEDS: Folic Acid 1 MG TAB PER TUBE SCH (08:48)
[2022-04-05] MEDS: Rifaximin 550 MG TAB PO SCH ×2 (08:48→21:08)
[2022-04-05] MEDS: Magnesium Oxide 250 MG TAB PO SCH (08:48)
[2022-04-05] MEDS: Thiamine 100 MG TAB PER TUBE SCH (08:48)
[2022-04-05] MEDS: Ascorbic Acid 500 mg Chewable Tablet PO SCH (08:48)
[2022-04-05] MEDS: Spironolactone 25 MG TAB PO SCH (08:48)
[2022-04-05] MEDS: Metamucil PACK PO SCH (08:48)
[2022-04-05] MEDS: Lidocaine 5% Patch TD SCH (08:49)
[2022-04-05] MEDS: Lansoprazole 15 MG/5 ML (BATCHED)UDCUP PER TUBE SCH (08:49)
[2022-04-05 13:18] LABS: Hemoglobin 10.9 g/dL (12.0-16.0); Mean Corpuscular HGB CONC 32.5 g/dL (32.0-36.0); Mean Corpuscular Hemoglobin 37.3 pg (27.0-31.0); Mean Platelet Volume 8.5 fL (7.4-10.4); Platelet Count 170 10x3/uL (130-400); RBC Distribution Width 20.1 % (11.5-14.5); Red Blood Cell (RBC) Count 2.92 mill/uL (4.20-5.40); White Blood Cell (WBC) Count 3.6 10x3/uL (4.8-10.8)
[2022-04-05 13:19] LABS: #Basophils 0.1 thou/uL (0.0-0.2); #Eosinphils 0.3 thou/uL (0.0-0.7); #Monocytes 0.4 thou/uL (0.11-0.59); #Neutrophils 1.9 thou/uL (1.40-6.50); %Basophils 1.7 % (0.0-1.0); %Lymphocytes 26.8 % (21.0-51.0); %Monocytes 9.5 % (0.0-10.0); %Neutrophils 53.2 % (42.0-75.0)
[2022-04-05 14:04] LABS: Macrocytosis SLIGHT = 6-15 cells (100X) (0-5/hpf); Ovalocytes SLIGHT = 2-5 cells (100X) (0-1/hpf); Polychromasia SLIGHT = 2-3 cells (100X) (0-2/hpf)
[2022-04-05] MEDS: Multivits W-Minerals Liquid 15 ML LIQ PER TUBE SCH (15:02)
[2022-04-05] MEDS: Transdermal Patch Removal LIDOCAINE TOP SCH (21:08)
[2022-04-06] MEDS: Vancomycin HCl 125 MG/5 ML (BATCHED) UDCUP PO SCH ×3 (00:07→12:19)
[2022-04-06 07:51] VITALS: TEMP 97.5
[2022-04-06 07:53] LABS: Anion Gap 9 mmol/L (10-20); BUN (Urea Nitrogen) 13 mg/dL (9.8-20.1); Calc. Creatinine Clearance 72 mL/min (70-130); Calcium 8.5 mg/dL (7.8-10.44); Carbon Dioxide 31 mmol/L (23-31); Chloride 99 mmol/L (98-107); Estimated GFR 97; Glucose 62 mg/dL (80-115); Potassium 3.5 mmol/L (3.5-5.1); Sodium 135 mmol/L (136-145)
[2022-04-06] MEDS: Calcium Carbonate 600 MG + Vit D TAB PO SCH (08:46)
[2022-04-06] MEDS: Magnesium Oxide 250 MG TAB PO SCH (08:46)
[2022-04-06] MEDS: Rifaximin 550 MG TAB PO SCH (08:46)
[2022-04-06] MEDS: Spironolactone 25 MG TAB PO SCH (08:46)
[2022-04-06] MEDS: Folic Acid 1 MG TAB PER TUBE SCH (08:47)
[2022-04-06] MEDS: Bupropion 150 MG XL TAB PO SCH (08:47)
[2022-04-06] MEDS: Lansoprazole 15 MG/5 ML (BATCHED)UDCUP PER TUBE SCH (08:47)
[2022-04-06] MEDS: Ascorbic Acid 500 mg Chewable Tablet PO SCH (08:47)
[2022-04-06] MEDS: Lidocaine 5% Patch TD SCH (08:47)
[2022-04-06] MEDS: Thiamine 100 MG TAB PER TUBE SCH (08:47)
[2022-04-06] MEDS: Metamucil PACK PO SCH (08:47)
[2022-04-06] MEDS: Multivits W-Minerals Liquid 15 ML LIQ PER TUBE SCH (09:16)
[2022-04-06 14:17] VITALS: BP 91/56
== END 2022-04-06 16:24 | DRG 432 ==
LOC: ERS 18:25 → EDBD 18:25 → IMCU/EMU 20:12 → T4-A 03-26 18:00
PROVIDERS: ADMIT Family Medicine; ATTEND Family Medicine
PROC: HZ2ZZZZ Detoxification Services for Substance Abuse Treatment (ICD-10-PCS; principal; 2022-03-22)
PROC: 30233N1 Transfusion of Nonautologous Red Blood Cells into Peripheral Vein, Percutaneous Approach (ICD-10-PCS; 2022-03-22)
PROC: 0D9670Z Drainage of Stomach with Drainage Device, Via Natural or Artificial Opening (ICD-10-PCS; 2022-03-22)
DX: K70.30 Alcoholic cirrhosis of liver without ascites (principal); Z66 Do not resuscitate; Z20.822 Contact with and (suspected) exposure to COVID-19; G93.41 Metabolic encephalopathy; J96.01 Acute respiratory failure with hypoxia; F10.239 Alcohol dependence with withdrawal, unspecified; D61.818 Other pancytopenia; N39.0 Urinary tract infection, site not specified; N17.9 Acute kidney failure, unspecified; D68.4 Acquired coagulation factor deficiency; A04.72 Enterocolitis due to Clostridium difficile, not specified as recurrent; M19.90 Unspecified osteoarthritis, unspecified site; F32.A Depression, unspecified; K76.82 Hepatic encephalopathy; E87.5 Hyperkalemia; E87.8 Other disorders of electrolyte and fluid balance, not elsewhere classified; R13.10 Dysphagia, unspecified; I80.8 Phlebitis and thrombophlebitis of other sites; Z79.899 Other long term (current) drug therapy
CPT/HCPCS: 36415; 36416; 36430; 70450; 71045; 74018; 74240; 76705; 80048; 80053; 80074; 80306; 80307; 81003; 81015; 82105; 82140; 82248; 82607; 83690; 83735; 84100; 85025; 85610; 85730; 86850; 86900; 86901; 87077; 87086; 87186; 87324; 87449; 87811; 94760; 96372; 96374; 96375; J0696; J1940; J2060; J2405; J3411; J3475; J3480; J3490; J7120; P9016; Q9963; U0002

== ENCOUNTER 2022-04-18 13:37 | Inpatient (IN) | payer MEDICARE ==
[2022-04-18 14:29] LABS: Hemoglobin 12.7 g/dL (12.0-16.0); Mean Corpuscular HGB CONC 32.1 g/dL (32.0-36.0); Mean Corpuscular Hemoglobin 37.5 pg (27.0-31.0); Mean Platelet Volume 9.6 fL (7.4-10.4); Platelet Count 172 10x3/uL (130-400); RBC Distribution Width 18.7 % (11.5-14.5); Red Blood Cell (RBC) Count 3.39 mill/uL (4.20-5.40); White Blood Cell (WBC) Count 9.9 10x3/uL (4.8-10.8)
[2022-04-18 14:38] LABS: Bacteria/HPF 4+ HPF (None Seen); Bilirubin Negative (Negative); Blood, Urine Negative (Negative); Clarity Turbid (Clear); Glucose, Urine (Dipstick) Normal (Negative); Ketone, Urine Negative (Negative); Leukocyte 500 Leu/uL (Negative); Nitrite 1+ (Negative); Protein, Urine (Dipstick) 10 mg/dL (Neg-Trace); RBC/HPF 0-3 HPF (0-3); Squamous Epithelial 0-3 HPF (0-3); Transitional Epithelial 0-3 HPF (None Seen); Urobilinogen Normal mg/dL (Less than 2); WBC/HPF Greater than 50 HPF (0-3); pH, Urine 5.5 (5.0-9.0)
[2022-04-18 14:40] LABS: INR-International Normal Ratio 1.7; PTT 37.6 sec (22.9-36.1); Prothrombin Time 20.4 sec (12.0-14.7)
[2022-04-18 14:50] LABS: ALT (SGPT) 12 U/L (8-55); AST (SGOT) 38 U/L (5-34); Albumin 2.4 g/dL (3.4-4.8); Alkaline Phosphatase 143 U/L (40-110); Anion Gap 16 mmol/L (10-20); BUN (Urea Nitrogen) 70 mg/dL (9.8-20.1); Bilirubin, Total 7.6 mg/dL (0.2-1.2); Calc. Creatinine Clearance 0 mL/min (70-130); Calcium 9.1 mg/dL (7.8-10.44); Carbon Dioxide 26 mmol/L (23-31); Chloride 106 mmol/L (98-107); Estimated GFR 29; Globulin 3.5 g/dL (2.4-3.5); Glucose 158 mg/dL (80-115); Lipase 9 U/L (8-78); Potassium 3.9 mmol/L (3.5-5.1); Protein, Total 5.9 g/dL (5.8-8.1); Sodium 144 mmol/L (136-145)
[2022-04-18 14:57] LABS: Band 19 % (5-11); Eosinophils 1 % (0-10); Lymphocytes 14 % (21-51); MDiff Complete? YES; Monocytes 6 % (0-10); Neutrophil 59 % (42-75); RBC Morphology Normal; Reactive Lymphocytes 1 % (0-10)
[2022-04-18 15:07] LABS: Acetaminophen Less than 10.0 mcg/mL (10.0-30.0); Alcohol Less than 10 mg/dL (Less than 10); Salicylate Less than 8.0 mg/dL (15.0-30.0)
[2022-04-18 15:12] LABS: CKMB 0.6 ng/mL (0-6.6)
[2022-04-18] MEDS ORDERED: cefTRIAXone\\ROCEPHIN 1 GM VIAL ONE (15:48)
[2022-04-18 17:47] LABS: Magnesium 1.9 mg/dL (1.6-2.6)
[2022-04-18] MEDS ORDERED: Magnesium 2 GM/50 ML BAG (IN WATER) ONE (18:22)
[2022-04-18] MEDS ORDERED: Digoxin 0.5 MG/2 ML AMP ONE ×2 (18:24→18:56)
[2022-04-18 18:29] LABS: CKMB 0.7 ng/mL (0-6.6)
[2022-04-18] MEDS ORDERED: Potassium Chloride 20 MEQ in Premix Bag 1 BAG IVPB SCH (18:45)
[2022-04-18] MEDS ORDERED: Digoxin 0.5 MG/2 ML AMP SLOW IVP SCH ×2 (18:45→19:00)
[2022-04-18] MEDS ORDERED: Magnesium 2 GM/50 ML(in water) 2 GM in Premix Bag 1 BAG IVPB SCH (18:45)
[2022-04-18] MEDS ORDERED: Sodium Chloride 0.9% 1,000 ML IV SCH ×2 (18:45→19:00)
[2022-04-18] MEDS ORDERED: Diltiazem 125 MG/25 ML ONE (19:10)
[2022-04-18] MEDS ORDERED: Diltiazem 125 MG in Sodium Chloride 0.9% 100 ML IVPB SCH (19:15)
[2022-04-18] MEDS ORDERED: Lactated Ringer's 1,000 ML IV SCH (20:00)
[2022-04-18] MEDS ORDERED: Amiodarone 450 MG in Dextrose 5% in Water 250 ML IVPB SCH (20:15)
[2022-04-18] MEDS ORDERED: Amiodarone 150 MG, Admixture Fee 1 EACH in Dextrose 5% in Water 100 ML IVPB SCH (20:30)
[2022-04-18] MEDS ORDERED: Famotidine/PF 20 mg/2ml Vial SLOW IVP SCH (21:00)
[2022-04-18 21:50] VITALS: BP 115/50
[2022-04-18 21:57] VITALS: BMI 19.4
[2022-04-18] MEDS: Lactated Ringer's 1,000 ML IV SCH (23:10)
[2022-04-18] MEDS: Vancomycin HCl 125 MG/5 ML (BATCHED) UDCUP PO SCH ×3 (23:11→23:35)
[2022-04-18] MEDS: Gabapentin 300 MG CAP PO SCH (23:11)
[2022-04-18] MEDS: Ondansetron ODT 4 MG TAB PO SCH (23:12)
[2022-04-18] MEDS: hydrOXYzine 25 MG TAB PO SCH (23:12)
[2022-04-18] MEDS: Rifaximin 550 MG TAB PO SCH (23:22)
[2022-04-19] MEDS: Lactated Ringer's 1,000 ML IV SCH ×3 (03:12→16:57)
[2022-04-19] MEDS: Ondansetron ODT 4 MG TAB PO SCH ×3 (04:20→22:09)
[2022-04-19] MEDS: Vancomycin HCl 125 MG/5 ML (BATCHED) UDCUP PO SCH ×3 (04:34→16:57)
[2022-04-19 07:43] LABS: Phosphorus 2.9 mg/dL (2.3-4.7)
[2022-04-19 07:54] LABS: ALT (SGPT) 19 U/L (8-55); AST (SGOT) 51 U/L (5-34); Alkaline Phosphatase 167 U/L (40-110); Anion Gap 12 mmol/L (10-20); BUN (Urea Nitrogen) 48 mg/dL (9.8-20.1); Bilirubin, Total 6.3 mg/dL (0.2-1.2); Calc. Creatinine Clearance 45 mL/min (70-130); Calcium 8.9 mg/dL (7.8-10.44); Carbon Dioxide 19 mmol/L (23-31); Chloride 119 mmol/L (98-107); Estimated GFR 70; Globulin 3.3 g/dL (2.4-3.5); Glucose 105 mg/dL (80-115); Magnesium 2.3 mg/dL (1.6-2.6); Protein, Total 5.3 g/dL (5.8-8.1); Sodium 146 mmol/L (136-145)
[2022-04-19 08:27] LABS: #Basophils 0.1 thou/uL (0.0-0.2); #Eosinphils 0.2 thou/uL (0.0-0.7); #Lymphocytes 1.2 thou/uL (1.20-3.40); #Monocytes 0.9 thou/uL (0.11-0.59); #Neutrophils 9.1 thou/uL (1.40-6.50); %Basophils 0.5 % (0.0-1.0); %Eosinophils 1.5 % (0.0-10.0); %Lymphocytes 10.9 % (21.0-51.0); %Monocytes 7.8 % (0.0-10.0); %Neutrophils 79.4 % (42.0-75.0); Band 26 % (5-11); Eosinophils 2 % (0-10); Hypochromia SLIGHT = 6-15 cells (100X) (0-5/hpf); Lymphocytes 4 % (21-51); MDiff Complete? YES; Macrocytosis MODERATE=16-30 cells (100X) (0-5/hpf); Mean Corpuscular HGB CONC 30.8 g/dL (32.0-36.0); Mean Platelet Volume 10.2 fL (7.4-10.4); Monocytes 3 % (0-10); Neutrophil 64 % (42-75); Platelet Count 98 10x3/uL (130-400); Platelet Morphology Comment Appears Decreased; Polychromasia SLIGHT = 2-3 cells (100X) (0-2/hpf); RBC Distribution Width 18.4 % (11.5-14.5); Red Blood Cell (RBC) Count 2.71 mill/uL (4.20-5.40); White Blood Cell (WBC) Count 11.5 10x3/uL (4.8-10.8)
[2022-04-19] MEDS: Magnesium Oxide 250 MG TAB PO SCH (08:57)
[2022-04-19] MEDS: Rifaximin 550 MG TAB PO SCH ×2 (08:58→22:09)
[2022-04-19] MEDS: hydrOXYzine 25 MG TAB PO SCH ×3 (08:58→22:09)
[2022-04-19] MEDS: Calcium Carbonate 600 MG + Vit D TAB PO SCH (08:58)
[2022-04-19] MEDS: Cholecalciferol 1,000 UNITS (25 MCG) TAB PO SCH (08:58)
[2022-04-19] MEDS: Folic Acid 1 MG TAB PER TUBE SCH (08:58)
[2022-04-19] MEDS: Thiamine 100 MG TAB PER TUBE SCH (08:58)
[2022-04-19] MEDS ORDERED: Bupropion 150 MG SR TAB PO SCH (09:00)
[2022-04-19] MEDS ORDERED: Bupropion 150 MG XL TAB PO SCH (09:00)
[2022-04-19] MEDS: Acetaminophen 650 MG/20.3 ML UDCUP PO PRN (12:03)
[2022-04-19] MEDS: buPROPion HCl 100 MG TAB PER TUBE SCH ×2 (15:02→22:09)
[2022-04-19] MEDS: cefTRIAXone\\ROCEPHIN 1 GM in Sodium Chloride 0.9% 100 ML IVPB SCH (16:57)
[2022-04-19] MEDS: Gabapentin 300 MG CAP PO SCH (22:08)
[2022-04-20] MEDS: Ondansetron ODT 4 MG TAB PO SCH (06:20)
[2022-04-20] MEDS ORDERED: Lactated Ringer's 1,000 ML IV SCH (08:45)
[2022-04-20] MEDS: Acetaminophen 650 MG/20.3 ML UDCUP PO PRN ×2 (08:48→15:54)
[2022-04-20] MEDS: Folic Acid 1 MG TAB PER TUBE SCH (08:49)
[2022-04-20] MEDS: Cholecalciferol 1,000 UNITS (25 MCG) TAB PO SCH (08:49)
[2022-04-20] MEDS: Magnesium Oxide 250 MG TAB PO SCH (08:49)
[2022-04-20] MEDS: buPROPion HCl 100 MG TAB PER TUBE SCH ×2 (08:49→15:01)
[2022-04-20] MEDS: Calcium Carbonate 600 MG + Vit D TAB PO SCH (08:49)
[2022-04-20] MEDS: Rifaximin 550 MG TAB PO SCH (08:49)
[2022-04-20] MEDS: Thiamine 100 MG TAB PER TUBE SCH (08:49)
[2022-04-20] MEDS ORDERED: Aspirin Chewable 81 MG TAB PER TUBE SCH (09:00)
[2022-04-20 12:07] LABS: #Eosinphils 0.2 thou/uL (0.0-0.7); #Lymphocytes 0.9 thou/uL (1.20-3.40); #Monocytes 0.4 thou/uL (0.11-0.59); %Basophils 0.6 % (0.0-1.0); %Eosinophils 4.1 % (0.0-10.0); %Lymphocytes 16.6 % (21.0-51.0); %Neutrophils 71.8 % (42.0-75.0); Hemoglobin 8.8 g/dL (12.0-16.0); Mean Corpuscular HGB CONC 31.1 g/dL (32.0-36.0); Mean Corpuscular Hemoglobin 37.9 pg (27.0-31.0); Platelet Count 88 10x3/uL (130-400); RBC Distribution Width 18.3 % (11.5-14.5); Red Blood Cell (RBC) Count 2.33 mill/uL (4.20-5.40); White Blood Cell (WBC) Count 5.5 10x3/uL (4.8-10.8)
[2022-04-20 12:12] VITALS: TEMP 98.8
[2022-04-20 12:20] LABS: ALT (SGPT) 14 U/L (8-55); AST (SGOT) 64 U/L (5-34); Albumin 1.6 g/dL (3.4-4.8); Alkaline Phosphatase 177 U/L (40-110); Anion Gap 11 mmol/L (10-20); BUN (Urea Nitrogen) 26 mg/dL (9.8-20.1); Bilirubin, Total 3.2 mg/dL (0.2-1.2); Calc. Creatinine Clearance 66 mL/min (70-130); Calcium 8.8 mg/dL (7.8-10.44); Carbon Dioxide 18 mmol/L (23-31); Chloride 123 mmol/L (98-107); Estimated GFR 100; Glucose 77 mg/dL (80-115); Potassium 4.3 mmol/L (3.5-5.1); Protein, Total 4.6 g/dL (5.8-8.1); Sodium 148 mmol/L (136-145)
[2022-04-20] MEDS: cefTRIAXone\\ROCEPHIN 1 GM in Sodium Chloride 0.9% 100 ML IVPB SCH (15:54)
[2022-04-20] MEDS ORDERED: Famotidine/PF 20 mg/2ml Vial SLOW IVP SCH (21:00)
[2022-04-21] MEDS ORDERED: FLU VACC QS2022-23(6MOS UP)/PF 60 MCG/0.5 ML SYRINGE IM ONE (22:15)
== END 2022-04-20 18:57 | DRG 871 ==
LOC: ERS 13:37 → ERHOLD 17:22 → IMCU/EMU 21:28
PROVIDERS: ADMIT Family Medicine; ATTEND Family Medicine
DX: A41.9 Sepsis, unspecified organism (principal); E43 Unspecified severe protein-calorie malnutrition; I21.A1 Myocardial infarction type 2; G93.41 Metabolic encephalopathy; R64 Cachexia; N17.9 Acute kidney failure, unspecified; A04.72 Enterocolitis due to Clostridium difficile, not specified as recurrent; Z68.1 Body mass index [BMI] 19.9 or less, adult; E87.0 Hyperosmolality and hypernatremia; Z66 Do not resuscitate; Z20.822 Contact with and (suspected) exposure to COVID-19; Z51.5 Encounter for palliative care; K70.30 Alcoholic cirrhosis of liver without ascites; I48.91 Unspecified atrial fibrillation; K76.82 Hepatic encephalopathy; B18.2 Chronic viral hepatitis C; F10.20 Alcohol dependence, uncomplicated; M19.90 Unspecified osteoarthritis, unspecified site; F32.A Depression, unspecified; E86.0 Dehydration; Z87.440 Personal history of urinary (tract) infections; Z79.899 Other long term (current) drug therapy
CPT/HCPCS: 36415; 51701; 70450; 71045; 74018; 80053; 80307; 81003; 81015; 82140; 82553; 83605; 83690; 83735; 84100; 84145; 84484; 85025; 85610; 85730; 87040; 87077; 87086; 87186; 93005; 93010; 94760; 96361; 96374; J0696; J1160; J1650; J3475; J3480; J3490; J7050; J7120; Q0162; S0028